=== PATIENT | female | born 1970 | race Two or more races ===

== ENCOUNTER 2016-10-30 08:56 | Emergency (ER) | payer OTHER ==
[~2016-10-30] VITALS: Ht 157.5 cm; Wt 68.0 kg
[2016-10-30 09:35] LABS: Basophils # (auto) 0 uL; Basophils % (auto) 0.4 % (0.0-2.0); Eosinophils # (auto) 0 uL; Eosinophils % (auto) 0.4 % (0.0-7.0); Hematocrit 45.3 % (36.0-46.0); Hemoglobin 15.3 g/dL (12.2-16.2); Lymphocytes # (auto) 2.9 uL; Lymphocytes % (auto) 35.8 % (10.0-50.0); Mean Corpuscular Hemoglobin 32.7 pg (28.0-32.0); Mean Corpuscular Hgb Conc. 33.7 g/dL (32.0-36.0); Mean Platelet Volume 7.9 fL (7.4-10.4); Monocytes # (auto) 0.2 uL; Monocytes % (auto) 2.8 % (0.0-12.0); Neutrophils # (auto) 4.8 uL; Neutrophils % (auto) 60.6 % (37.0-80.0); Platelet Count (auto) 226 10^3/uL (140-450); Red Cell Distribution Width 13.5 % (11.6-16.0)
[2016-10-30 09:50] VITALS: BP 110/68
[2016-10-30] MEDS ORDERED: SODIUM CHLORIDE 0.9% 1,000 ML IV ONE (10:01)
[2016-10-30 10:04] LABS: Urine Bilirubin Negative (Negative); Urine Blood TRACE /uL (Negative); Urine Color Yellow (Yellow); Urine Mucus FEW (None Seen); Urine Nitrite Negative (Negative); Urine RBC 4 /hpf (0 - 4); Urine Squamous Epithelial Cell FEW /hpf (<5); Urine Urobilinogen Normal (Negative); Urine pH 7.5 (5.0-8.0)
[2016-10-30 10:06] LABS: Urine Glucose 1+ mg/dL (Normal); Urine Ketone 1+ (Negative)
[2016-10-30 10:10] LABS: Albumin 3.4 g/dL (3.4-5.0); Alkaline Phosphatase 55 U/L (45-117); Anion Gap 10 (5-15); Aspartate Aminotransferase 25 U/L (15-37); BUN/Creatinine Ratio 25.6; Bilirubin, Total 0.3 mg/dL (0.2-1.0); Blood Urea Nitrogen 20 mg/dL (7-18); Calcium 8.3 mg/dL (8.5-10.1); Carbon Dioxide 21 mmol/L (21-32); Chloride 112 mmol/L (98-107); GFR African American 103 mL/min; GFR Non-African American 85 mL/min; Glucose 143 mg/dL (74-106); Potassium 3.5 mmol/L (3.5-5.1); Sodium 143 mmol/L (136-145); Total Protein 7.1 g/dL (6.4-8.2)
[2016-10-30] MEDS ORDERED: methylPREDNISolone SOD SUCC 125 MG/2 ML VL IV ONE (10:15)
[2016-10-30] MEDS ORDERED: diphenhdrAMINE HCL 50 MG/1 ML VL IV ONE (10:15)
== END 2016-10-30 11:47 | disposition home or self-care (01) ==
LOC: ER 08:56 → EDBD 08:56 → ER 11:47
DX: R11.2 Nausea with vomiting, unspecified (principal); T80.89XA Other complications following infusion, transfusion and therapeutic injection, initial encounter; Y92.89 Other specified places as the place of occurrence of the external cause
CPT/HCPCS: 36415; 71010; 80053; 81001; 81025; 83735; 84484; 85025; 93005; 94761; 96361; 96374; 96375; 99285; J1200; J2930; J7030

== ENCOUNTER 2017-01-28 22:33 | Emergency (ER) | payer OTHER ==
[~2017-01-28] VITALS: Ht 154.9 cm; Wt 67.1 kg
[2017-01-28 22:33] VITALS: BP 153/87
[2017-01-28 23:33] LABS: Urine Bilirubin Negative (Negative); Urine Blood 1+ /uL (Negative); Urine Color Yellow (Yellow); Urine Glucose Normal (Normal); Urine Ketone Negative (Negative); Urine Mucus FEW (None Seen); Urine Nitrite Negative (Negative); Urine RBC 9 /hpf (0 - 4); Urine Squamous Epithelial Cell FEW /hpf (<5); Urine Urobilinogen Normal (Negative); Urine pH 6.5 (5.0-8.0)
== END 2017-01-29 01:55 | disposition left against medical advice (07) ==
LOC: ER 22:33
DX: R10.12 Left upper quadrant pain (principal); Z53.21 Procedure and treatment not carried out due to patient leaving prior to being seen by health care provider
CPT/HCPCS: 81001; 81025

== ENCOUNTER 2019-09-19 07:16 | Emergency (ER) | payer OTHER ==
[~2019-09-19] VITALS: Ht 154.9 cm; Wt 68.0 kg
[2019-09-19 07:25] VITALS: BP 119/81
[2019-09-19] MEDS ORDERED: DICYCLOMINE HCL 10 MG CAP PO ONE (08:00)
[2019-09-19] MEDS ORDERED: LOPERAMIDE HCL 2 MG CAP PO ONE (08:00)
== END 2019-09-19 08:14 | disposition home or self-care (01) ==
LOC: ER 07:16
DX: K52.9 Noninfective gastroenteritis and colitis, unspecified (principal)
CPT/HCPCS: 99283; J0500

== ENCOUNTER 2021-08-23 11:26 | Emergency (ER) | payer SELFPAY ==
[~2021-08-23] VITALS: Ht 154.9 cm; Wt 67.1 kg
[2021-08-23 12:57] LABS: Urine Bacteria NONE SEEN /hpf (None Seen); Urine Blood 2+ /uL (Negative); Urine Hyaline Cast FEW /lpf (0 - 2); Urine Mucus FEW (None Seen); Urine Specific Gravity 1.023 (1.001-1.035); Urine WBC 30 /hpf (0 - 5)
[2021-08-23] MEDS ORDERED: cefTRIAXone SOD 1,000 MG VL IM ONE (16:15)
[2021-08-23] MEDS ORDERED: MORPHINE SULFATE INJECTION 2 MG/ML SYRG IM ONE (16:15)
[2021-08-23] MEDS ORDERED: ONDANSETRON ODT 4 MG TAB PO ONE (16:15)
[2021-08-23 17:18] LABS: Basophils # (auto) 0 10 ^3/uL (0-0.2); Basophils % (auto) 0.6 % (0.0-2.0); Eosinophils # (auto) 0.1 10 ^3/uL (0-0.8); Eosinophils % (auto) 1.2 % (0.0-7.0); Hematocrit 43.7 % (36.0-46.0); Hemoglobin 15.2 g/dL (12.2-16.2); Lymphocytes % (auto) 45.9 % (10.0-50.0); Mean Corpuscular Hemoglobin 33.2 pg (28.0-32.0); Mean Corpuscular Hgb Conc. 34.7 g/dL (32.0-36.0); Mean Corpuscular Volume 95.9 fL (80.0-100.0); Monocytes # (auto) 0.5 10 ^3/uL (0-1.3); Monocytes % (auto) 8.1 % (0.0-12.0); Neutrophils # (auto) 2.9 10 ^3/uL (1.6-8.6); Neutrophils % (auto) 44.2 % (37.0-80.0); Nucleated Red Blood Cells % 0.1 %; Red Blood Cells 4.56 10^6/uL (4.0-5.20); White Blood Cell 6.6 10^3/uL (4.4-10.8)
[2021-08-23 17:33] LABS: INR 0.99 (0.9-1.15); Partial Thromboplastin Time 23.9 sec (23.6-33.0)
[2021-08-23 17:40] LABS: Albumin 3.6 g/dL (3.4-5.0); BUN/Creatinine Ratio 28.4; Calcium 9.4 mg/dL (8.5-10.1); Potassium 3.8 mmol/L (3.5-5.1)
[2021-08-23 17:41] VITALS: BP 128/81
[2021-08-23 17:43] LABS: Bilirubin, Total 0.3 mg/dL (0.2-1.0); Total Protein 7.8 g/dL (6.4-8.2)
[2021-08-23] MEDS ORDERED: ACET-1158 PO (17:53)
[2021-08-23] MEDS ORDERED: SULF800T7 PO (17:53)
== END 2021-08-23 18:12 | disposition home or self-care (01) ==
LOC: ER 11:26
DX: N39.0 Urinary tract infection, site not specified (principal)
CPT/HCPCS: 36415; 72100; 74176; 80053; 81001; 85025; 85610; 85730; 96372; 99285; J0696; J2270; Q0162

== ENCOUNTER → 2022-05-12 | Emergency (ER) | payer BC, OTHER ==
[~2022-05-12] VITALS: Ht 154.9 cm; Wt 68.0 kg
[~2022-05-12] MED LIST: ACET-1158 PO; ASPirin 81 mg TAB PO ONE; SULF800T7 PO
[2022-05-12 11:26] LABS: Basophils # (auto) 0.1 10 ^3/uL (0-0.2); Basophils % (auto) 0.9 % (0.0-2.0); Eosinophils # (auto) 0.1 10 ^3/uL (0-0.8); Eosinophils % (auto) 1.2 % (0.0-7.0); Hematocrit 47.7 % (36.0-46.0); Hemoglobin 16.3 g/dL (12.2-16.2); Lymphocytes # (auto) 3.6 10 ^3/uL (0.4-5.4); Lymphocytes % (auto) 46.9 % (10.0-50.0); Mean Corpuscular Hemoglobin 32.8 pg (28.0-32.0); Mean Corpuscular Hgb Conc. 34.1 g/dL (32.0-36.0); Mean Corpuscular Volume 96.2 fL (80.0-100.0); Monocytes # (auto) 0.3 10 ^3/uL (0-1.3); Monocytes % (auto) 4.3 % (0.0-12.0); Neutrophils # (auto) 3.6 10 ^3/uL (1.6-8.6); Neutrophils % (auto) 46.7 % (37.0-80.0); Red Blood Cells 4.96 10^6/uL (4.0-5.20); White Blood Cell 7.7 10^3/uL (4.4-10.8)
[2022-05-12 11:54] LABS: Potassium 3.7 mmol/L (3.5-5.1)
[2022-05-12 11:57] LABS: BUN/Creatinine Ratio 16.3; Calcium 9.3 mg/dL (8.5-10.1); Magnesium 2.4 mg/dL (1.6-2.6)
[2022-05-12 12:00] LABS: Bilirubin, Total 0.7 mg/dL (0.2-1.0); Total Protein 8.2 g/dL (6.4-8.2)
[2022-05-12 15:34] VITALS: BP 128/77
== END | disposition home or self-care (01) ==
LOC: ER 10:49
DX: R07.89 Other chest pain (principal)
CPT/HCPCS: 36415; 71046; 80053; 83735; 84484; 85025; 85379; 93005